=== PATIENT | male | born 1965 | race Caucasian/White ===

== ENCOUNTER 2019-08-28 08:11 | Outpatient (CLI) | payer BC ==
--- NOTE | 2019-08-28 10:28 | ULT ---
ABDOMINAL ULTRASOUND: Date: 08/28/2019 HISTORY: Abdominal pain, predominantly right-sided. FINDINGS: Real-time imaging of the upper abdomen was performed. This shows a normal appearing gallbladder. The common duct is 5-6 mm. The liver is 15.0 cm in length and shows no focal findings. Spleen is 11.9 cm. Right and left kidneys are normal in size and not obstructed. The pancreas is obscured. Abdominal aor ta and IVC regions are unremarkable. IMPRESSION: Unremarkable abdomen ultrasound. Somewhat technically difficult exam due to bowel gas. POS: [facility]
== END 2019-08-28 08:12 | disposition home or self-care (01) ==
LOC: ULT 08:11
PROVIDERS: ATTEND Internal Medicine Gastroenterology
DX: R10.11 Right upper quadrant pain (principal)
CPT/HCPCS: 93975

== ENCOUNTER 2021-08-26 10:33 | Outpatient (CLI) | payer BC | END 2021-08-26 10:34 | disposition home or self-care (01) | LOC: NM 10:33 | PROVIDERS: ATTEND Family Medicine | DX: K82.9 Disease of gallbladder, unspecified (principal) | CPT/HCPCS: 78227; A9537 ==